=== PATIENT | female | born 1980 | race Caucasian/White ===

== ENCOUNTER 2018-03-18 13:15 | Inpatient (IN) | payer OTHER ==
[~2018-03-18] VITALS: Ht 154.9 cm; Wt 75.3 kg
[2018-03-22] MEDS ORDERED: SINGUL PO (07:54)
[2018-03-25] MEDS ORDERED: SINGULAIR 4MG4 MG PO (14:54)
[2018-03-27] MEDS ORDERED: IBUPROFEN800 MG PO (06:54)
[2018-03-27] MEDS ORDERED: GABAPENTIN600 MG PO (06:54)
== END 2018-03-27 09:56 | disposition home or self-care (01) | DRG 743 ==
LOC: ADM 13:15 → O/R 03-25 05:47 → OB/GYN 03-25 05:47 → CIR.AMB 03-25 13:15 → EDSTATUS 03-25 13:15 → OB/GYN 03-25 13:15
PROVIDERS: ADMIT Obstetrics & Gynecology
PROC: 0UB90ZZ Excision of Uterus, Open Approach (ICD-10-PCS; principal; 2018-03-25 10:00)
DX: D25.9 Leiomyoma of uterus, unspecified (principal)

== ENCOUNTER 2021-02-15 08:50 | Outpatient (CLI) | payer OTHER ==
[~2021-02-15 08:50] MED LIST: GABAPENTIN600 MG PO; IBUPROFEN800 MG PO; SINGUL PO; SINGULAIR 4MG4 MG PO
== END 2021-02-15 08:54 | disposition home or self-care (01) ==
LOC: RAD 08:50
PROVIDERS: ATTEND Specialist
DX: D25.0 Submucous leiomyoma of uterus (principal)

== ENCOUNTER 2024-02-21 08:45 | Inpatient (IN) | payer OTHER ==
[~2024-02-21] VITALS: Ht 33 cm; Wt 71.2 kg
[~2024-02-21 08:45] MED LIST changes: +SOD FERRIC GLUC COMPLX/SUCROSE 125 MG in 0.9 % SODIUM CHLORIDE 100 ML IV SCH
[2024-02-21 10:35] VITALS: BP 111/75
[2024-02-21 10:39] VITALS: BP 104/64
[2024-02-21] MEDS ORDERED: ZYRTEC10 M3 PO (10:43)
[2024-02-21] MEDS ORDERED: FLONASE16 GM (10:44)
[2024-02-21] MEDS ORDERED: SALINE NASAL SP44 ML (10:44)
[2024-02-21 10:56] LABS: HEMATOCRIT 33.3 % (36.0-45.00); HEMOGLOBIN 10.9 g/dL (12.0-15.00); MEAN CELL VOLUME 74.6 fL (80.00-100.00); MEAN CORPUSCULAR HEMOGLOBIN 24.5 pg (27.00-32.0); MEAN CORPUSCULAR HGB CONC 32.8 g/dl (32.0-36.0); PLATELET COUNT 333 K/uL (150-450); RED BLOOD COUNT 4.46 M/uL (4.00-6.00)
[2024-02-21 10:57] LABS: RED CELL DISTRIBUTION WIDTH 17.3 % (11.5-14.5)
[2024-02-21 11:15] LABS: PH,URINE 6.5 (5.0-8.0); URINE APPEARANCE Clear; URINE BILIRRUBIN Negative (NEGATIVE); URINE BLOOD Negative; URINE COLOR Yellow; URINE GLUCOSE Negative (NEGATIVE); URINE KETONE Negative (NEGATIVE); URINE LEUKOCYTE Negative; URINE NITRATE Negative; URINE PROTEIN Negative (NEGATIVE); URINE UROBILINOGEN 0.2 E.U./dl
[2024-02-21 11:19] LABS: URINE BACTERIA 293.6 uL (0.0-1933); URINE EPITHELIAL CELLS 12.3 uL (0.0-38.8); URINE RBC 6.7 uL (0.0-20.8); URINE WBC 6.4 uL (0.0-23.2)
[2024-02-21 11:39] LABS: INR 1.05; PARTIAL THROMBOPLASTIN TIME 28.5 SECONDS (22.0-34.0); PROTHROMBIN TIME 11.4 SECONDS (9.0-11.5)
[2024-02-21 12:07] LABS: ALBUMIN 3.6 gm/dL (3.4-5.0); BILIRUBIN TOTAL 0.26 mg/dL (0.3-1.2); CALCIUM 8.4 mg/dL (8.5-10.1); CREATININE SERUM 0.63 mg/dL (0.55-1.02); GFR 102.66; GLOBULINA 3.6 G/DL (2.4-3.5); POTASSIUM 4.09 mEq/L (3.5-5.1); TOTAL PROTEIN 7.2 gm/dL (6.4-8.2)
[2024-03-03] MEDS ORDERED: CHLORHEXIDINE GLUCONATE 120 ML BOTTLE TOP ONE (07:01)
[2024-03-03] MEDS ORDERED: POVIDONE-IODINE 118 ML BOTT TOP ONE (07:01)
[2024-03-03] MEDS ORDERED: CEFAZOLIN SODIUM 1,000 MG VIAL ONE (07:01)
[2024-03-03] MEDS ORDERED: CEFOXITIN SODIUM 2,000 MG VIAL IV ONE (07:04)
[2024-03-03] MEDS ORDERED: SUGAMMADEX SODIUM 200 MG/2 ML VIAL IV ONE (09:14)
[2024-03-03] MEDS ORDERED: PROMETHAZINE HCL 25 MG/ML AMPUL IV SCH (09:31)
[2024-03-03] MEDS ORDERED: MEPERIDINE HCL/PF 50 MG/ML VIAL IV SCH (09:31)
[2024-03-03] MEDS ORDERED: MORPHINE SULFATE 4 MG/ML VIAL IV ONE ×2 (09:35→10:20)
[2024-03-03 12:23] VITALS: BP 104/64
[2024-03-03 16:37] VITALS: BP 118/73
[2024-03-03 18:00] LABS: HEMATOCRIT 29.8 % (36.0-45.00); HEMOGLOBIN 9.5 g/dL (12.0-15.00); MEAN CELL VOLUME 75.5 fL (80.00-100.00); MEAN CORPUSCULAR HGB CONC 31.7 g/dl (32.0-36.0); PLATELET COUNT 268 K/uL (150-450); RED BLOOD COUNT 3.95 M/uL (4.00-6.00); RED CELL DISTRIBUTION WIDTH 16.7 % (11.5-14.5)
[2024-03-04 01:00] VITALS: BP 111/70
[2024-03-04] MEDS ORDERED: IBUprofen 800 MG TABLET PO SCH (02:00)
[2024-03-04] MEDS ORDERED: GABAPENTIN 300 MG CAPSULE PO SCH (05:00)
[2024-03-04] MEDS ORDERED: SOD FERRIC GLUC COMPLX/SUCROSE 62.5 MG/5 ML AMPUL IV NR (06:30)
[2024-03-04 08:11] VITALS: BP 101/62
[2024-03-04] MEDS ORDERED: POLYETHYLENE GLYCOL 3350 17 GM BLIST.PACK PO SCH (09:00)
[2024-03-04] MEDS ORDERED: SIMETHICONE 125 MG CAPSULE PO SCH (09:00)
[2024-03-04 16:35] VITALS: BP 105/69
[2024-03-04 20:49] VITALS: BP 95/58
[2024-03-05 00:16] VITALS: BP 98/64
[2024-03-05] MEDS ORDERED: IBUPROFEN800 MG PO (07:00)
[2024-03-05] MEDS ORDERED: SIMETHICONE125 M1 PO (07:00)
[2024-03-05] MEDS ORDERED: GABAPENTIN300 MG PO (07:00)
[2024-03-05] MEDS ORDERED: POLY119PG PO (07:00)
[2024-03-05 08:03] VITALS: BP 100/62
== END 2024-03-05 09:31 | disposition home or self-care (01) | DRG 743 ==
LOC: O/R 03-03 05:37 → SURG 03-03 08:45 → OB/GYN 03-03 11:03
PROVIDERS: ADMIT Obstetrics & Gynecology; ATTEND Obstetrics & Gynecology
PROC: 0UT60ZZ Resection of Left Fallopian Tube, Open Approach (ICD-10-PCS; 2024-03-03)
PROC: 0UT10ZZ Resection of Left Ovary, Open Approach (ICD-10-PCS; 2024-03-03)
PROC: 0UT90ZZ Resection of Uterus, Open Approach (ICD-10-PCS; principal; 2024-03-03 09:30)
DX: D25.1 Intramural leiomyoma of uterus (principal); D25.2 Subserosal leiomyoma of uterus; D25.0 Submucous leiomyoma of uterus; N80.03 Adenomyosis of the uterus; N72 Inflammatory disease of cervix uteri; N83.02 Follicular cyst of left ovary; Z20.822 Contact with and (suspected) exposure to COVID-19